=== PATIENT | female | born 1990 | race Caucasian/White ===

== ENCOUNTER 2022-05-06 12:05 | Inpatient (IN) | payer BC ==
[2022-05-06] MEDS ORDERED: Oxytocin 10 UNITS/ML VIAL ONE (12:32)
[2022-05-06 12:46] VITALS: BMI 36.1
[2022-05-06] MEDS ORDERED: Lidocaine 1% (PF) 30 ML VIAL ONE (12:50)
[2022-05-06] MEDS ORDERED: Ondansetron PF 4 MG/2 ML Vial IVP PRN ×2 (12:52→15:00)
[2022-05-06] MEDS ORDERED: Misoprostol 200 MCG TAB PR PRN (12:52)
[2022-05-06] MEDS ORDERED: Ibuprofen 800 MG TAB PO PRN (12:52)
[2022-05-06] MEDS ORDERED: hydrALAZINE 20 MG/ML VIAL SLOW IVP PRN ×2 (12:52→15:00)
[2022-05-06] MEDS ORDERED: Promethazine HCl 25 MG/ML VIAL IM PRN ×2 (12:52→15:00)
[2022-05-06] MEDS ORDERED: Lidocaine 1% (PF) 30 ML VIAL SC PRN (12:52)
[2022-05-06] MEDS ORDERED: Methylergonovine 0.2 MG/ML VIAL IM PRN ×2 (12:52→15:00)
[2022-05-06] MEDS ORDERED: Carboprost 250 MCG/ML AMP IM PRN (12:52)
[2022-05-06] MEDS ORDERED: Misoprostol 200 MCG TAB VAG PRN (15:00)
[2022-05-06] MEDS ORDERED: Milk Of Magnesia 30 ML UDCUP PO PRN (15:00)
[2022-05-06] MEDS ORDERED: Boostrix 0.5 ML (Tdap) VIAL (>/=7 yrs of age) IM ONE (15:00)
[2022-05-06] MEDS ORDERED: Lanolin Ointment 7 GM TUBE TOP PRN (15:00)
[2022-05-06] MEDS ORDERED: Benzocaine-Menthol 82.5 ML CAN TOP PRN (15:00)
[2022-05-06] MEDS ORDERED: Bisacodyl 10 MG SUPP PR PRN (15:00)
[2022-05-06] MEDS: Ibuprofen 800 MG TAB PO SCH (15:40)
[2022-05-06] MEDS: Ferrous Sulfate 325 MG TAB PO SCH (17:41)
[2022-05-07] MEDS: Ibuprofen 800 MG TAB PO SCH ×4 (00:06→21:06)
[2022-05-07] MEDS: Docusate 100 MG CAP PO SCH ×3 (00:06→21:06)
[2022-05-07] MEDS: Prenatal Vitamin 1 TAB PO SCH (08:28)
[2022-05-07] MEDS: Ferrous Sulfate 325 MG TAB PO SCH ×2 (08:28→16:43)
[2022-05-08] MEDS: Ibuprofen 800 MG TAB PO SCH ×2 (05:34→13:42)
[2022-05-08 07:53] VITALS: BP 126/71; TEMP 98.3
[2022-05-08] MEDS: Docusate 100 MG CAP PO SCH (08:46)
[2022-05-08] MEDS: Prenatal Vitamin 1 TAB PO SCH (08:46)
[2022-05-08] MEDS: Ferrous Sulfate 325 MG TAB PO SCH (08:47)
== END 2022-05-08 14:55 | disposition home or self-care (01) | DRG 807 ==
LOC: CSHLD/OP 12:05 → CSHLD 12:32 → CSHPP 15:53
PROVIDERS: ADMIT Obstetrics & Gynecology; ATTEND Obstetrics & Gynecology
PROC: 10E0XZZ Delivery of Products of Conception, External Approach (ICD-10-PCS; principal; 2022-05-06)
DX: O42.02 Full-term premature rupture of membranes, onset of labor within 24 hours of rupture (principal); Z37.0 Single live birth; O70.1 Second degree perineal laceration during delivery; Z3A.38 38 weeks gestation of pregnancy
CPT/HCPCS: 99285; J2590